=== PATIENT | male | born 2000 | race Caucasian/White ===

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

== ENCOUNTER 2022-12-25 12:46 | Emergency (ER) | payer OTHER, SELFPAY ==
[2022-12-25 13:15] VITALS: BP 117/74; PULSE 77; RESP 18; TEMP 37; O2SAT 98; BMI 16.9
--- NOTE | 2022-12-25 13:36 | EXP.UTC ---
Discharge Plan Disposition Patient Disposition: Home, Self-Care Condition: Good Referrals Follow up/Referrals: Provider,Referral, MD [Primary Care Provider] - See instructions Activity Restrictions/Add. Instructions Additional Instructions/Restrictions: Follow up with your Family Doctor if no improvement or any worsening of symptoms Return if needed Straight to ER if any life threatening symptoms Clinical Impressions Clinical Impression: Impacted ear wax Qualifiers: Laterality: bilateral Qualified Code(s): H61.23 - Impacted cerumen, bilateral Instructions Patient Instructions: DI for Cerumen Impaction Discharge ED Provider: Hanny Felix [facility] General Stated complaint: bilateral ear pain Mode of Arrival: Ambulatory Source of Information: Patient Limitations: No Limitations Time Seen by Provider: 12/25/22 13:36 Description of Symptoms (Recalled from Triage Doc. by RN): Bilateral ear pain. Pt states that they are clogged. HEENT Symptoms (Recalled from RN notes): Yes Resp Symptoms (Recalled from RN notes): No Skin Symptoms (Recalled from RN notes): No MS Symptoms (Recalled from RN notes): No Functional Status (Recalled from RN notes): n/a History of Present Illness Provider Complaint: Patient states that he hasnt been able to hear well out of both ears for well over a week not sure if he slept wrong and has fluid in them or if they area stopped up with ear wax States that he has tried to get them cleaned out but nothing he has done at home has worked and it is aggravating him Related Data Allergies Allergy/AdvReac Type Severity Reaction Status Date / Time No Known Allergies Allergy Verified 12/25/22 13:26 Worker's Comp Is this a Worker's Comp case?: No [facility] Disclaimer: The information contained in this section may have been updated after the patient was seen, as this information can be updated by other users. Social History Smoking Status: Unknown if ever smoked alcohol intake: never current occupational status: employed Travel in the last 8 weeks: None ROS Obtained: Yes All systems reviewed & no additional complaints except as documented and Yes Systems reviewed as appropriate & no additional complaints except as documented Constitutional Constitutional: Reports system reviewed and no additional complaints, except as documented and Reports as per HPI ENT Ears, Nose, Mouth, and Throat: Reports system reviewed and no additional complaints, except as documented, Reports as per HPI and Reports otalgia (feels like both ears are stopped up) Physical Exam General General appearance: alert and in no apparent distress Expanded ENT Exam TM/Canal exam: Bilateral TM: cerumen impaction Respiratory Respiratory exam: Present normal lung sounds bilaterally; Absent respiratory distress or wheezes Cardiovascular Cardiovascular exam: Present regular rate, normal rhythm and normal heart sounds Neurological Exam Neurological exam: Present alert, oriented X3 and normal gait Medical Decision Making Agusto Inquiry Pt receiving controlled substance: No Agusto was queried for this patient: No Vital Signs: 12/25/22 13:15 Temperature 98.6 F Temperature Source Oral Pulse Rate [Right Radial] 77 Respiratory Rate 18 Blood Pressure [Right Arm] 117/74 Blood Pressure Mean [Right Arm] 88 Blood Pressure Source [Right Arm] Automatic Cuff Blood Pressure Position [Right Arm] Sitting 02 Sat by Pulse Oximetry 98 Oxygen Delivery Method Room Air Procedures Ear Wax Removal Both Ears: Cerumenolytic Used: other Results: Re-examined: cerumen removed completely TM Examination: TM(s) intact, normal appearance Ear Canal Exam: atraumatic Patient Tolerated Procedure: well and no complications Complications: no problems Technique: ear canal irrigated Additional Comments: Patient states that he can now hear denies pain
[2022-12-25 13:55] VITALS: BP 117/74; PULSE 77; RESP 18; TEMP 37; O2SAT 98
== END 2022-12-25 13:58 | disposition home or self-care (01) ==
PROVIDERS: Emergency Provider Nurse Practitioner
DX: H61.23 Impacted cerumen, bilateral (principal); H92.03 Otalgia, bilateral
CPT/HCPCS: 69209; 99204; 99212; 99213; G0463

== ENCOUNTER 2024-02-03 13:52 | Emergency (ER) | payer SELFPAY ==
[2024-02-03 14:25] VITALS: BP 114/67; PULSE 66; RESP 18; TEMP 36.9; O2SAT 99; BMI 16.6
[2024-02-03 14:45] LABS: UTC Strep Screen (Rapid) Negative (Negative)
--- NOTE | 2024-02-03 15:13 | ED_ITS ---
Discharge Plan Disposition Patient Disposition: Home, Self-Care Condition: Good Prescriptions Prescriptions: New muqbqzczyorxpqd-brjtbxkod-PH [Bromfed DM] 2-30-10 mg/5 mL syrup 10 ml PO Q4-6H PRN (Reason: cold symptoms) Qty: 200 0RF Referrals Follow up/Referrals: Provider,Referral, [Primary Care Provider] - See instructions Activity Restrictions/Add. Instructions Additional Instructions/Restrictions: Take medication as prescribed. Increase fluids and rest. If symptoms persist or worsen, return to clinic/PCP. Clinical Impressions Clinical Impression: Upper respiratory infection, viral Instructions Patient Instructions: DI for Viral Upper Respiratory Infection -- Adult Print Language Print Language: Swazi Discharge ED Provider: Tatianna Garcia [facility] General Stated complaint: sore throat, runny nose Mode of Arrival: Ambulatory Source of Information: Patient Limitations: No Limitations Time Seen by Provider: 02/03/24 15:12 Description of Symptoms (Recalled from Triage Doc. by RN): PATIENT C/O SORE THROAT AND RUNNY NOSE SINCE MONDAY HEENT Symptoms (Recalled from RN notes): Yes Resp Symptoms (Recalled from RN notes): No Skin Symptoms (Recalled from RN notes): No MS Symptoms (Recalled from RN notes): No Functional Status (Recalled from RN notes): WNL History of Present Illness Provider Complaint: Pt reports that he has had a runny nose, cough, and sore throat since Monday. He denies taking anything for his symptoms. Related Data Previous Rx's ?Medication ?Instructions ?Recorded evxkvttktqumolo-ymqrhwuqthcfcxk-CM 10 ml PO Q4-6H PRN cold symptoms 02/03/24 2 mg-30 mg-10 mg/5 mL oral syrup #200 mL (Bromfed DM) Allergies Allergy/AdvReac Type Severity Reaction Status Date / Time No Known Allergies Allergy Verified 12/25/22 13:26 Worker's Comp Is this a Worker's Comp case?: No [facility] Disclaimer: The information contained in this section may have been updated after the patient was seen, as this information can be updated by other users. Surgical History (Updated 02/03/24 @ 14:37 by Nancy Tolliver RN) History of tonsillectomy Social History (Updated 12/25/22 @ 14:01 by Helga Felix, [employer]) Smoking Status: Unknown if ever smoked alcohol intake: never current occupational status: employed Travel in the last 8 weeks: None ROS Obtained: Yes All systems reviewed & no additional complaints except as documented Constitutional Constitutional: Reports system reviewed and no additional complaints, except as documented Eyes Eyes: Reports system reviewed and no additional complaints, except as documented ENT Ears, Nose, Mouth, and Throat: Reports system reviewed and no additional complaints, except as documented, Reports nasal congestion, Reports nasal discharge, Reports post nasal drip and Reports sore throat Cardiovascular Cardiovascular: Reports system reviewed and no additional complaints, except as documented Respiratory Respiratory: Reports system reviewed and no additional complaints, except as documented and Reports non-productive cough Gastrointestinal Gastrointestingal: Reports system reviewed and no additional complaints, except as documented Genitourinary Male Genitourinary: Reports system reviewed and no additional complaints, except as documented Musculoskeletal Musculoskeletal: Reports system reviewed and no additional complaints, except as documented Integumentary/Breasts Skin/Breast: Reports system reviewed and no additional complaints, except as documented Neurologic Neurologic: Reports system reviewed and no additional complaints, except as documented Endocrine Endocrine: Reports system reviewed and no additional complaints, except as documented Hematologic/Lymphatic Henatologic/Lymphatic: Reports system reviewed and no additional complaints, except as documented Allergic/Immunologic Allergic/Immunologic: Reports system reviewed and no additional complaints, except as documented Physical Exam General General appearance: alert and in no apparent distress Head Head exam: atraumatic and normocephalic Eye Eye exam: Present normal appearance ENT ENT exam: Present mucous membranes moist Expanded ENT Exam External ear exam: Present normal external inspection Nose exam: Absent sinus tenderness Nasal speculum exam: Bilateral: other (clear drainage) Mouth exam: Present normal external inspection Teeth exam: Present normal inspection Throat exam: Present tonsillar erythema Comment: post nasal drainage noted Neck Neck exam: Present normal inspection Chest Chest inspection: Present normal inspection and symmetric chest wall rise Respiratory Respiratory exam: Present normal lung sounds bilaterally Cardiovascular Cardiovascular exam: Present regular rate and normal rhythm Abdominal Exam Abdominal exam: Present soft Extremities Exam Extremities exam: Present normal inspection Back Exam Back exam: Present normal inspection Neurological Exam Neurological exam: Present alert and oriented X3 Psychiatric Psychiatric exam: Present normal affect and normal mood Skin Skin exam: Present warm, dry and intact Lymphatic Lymphatic Findings: no adenopathy Medical Decision Making Medical Records Screening: Per USPSTF and CDC recommendations, given the prevalence of disease in our region, it is our hospital?s policy to screen for HIV and viral Hepatitis for all patients aged 18 and over and those with ongoing risk factors. Agusto Inquiry Pt receiving controlled substance: No Agusto was queried for this patient: No Vital Signs: 02/03/24 14:25 Temperature 98.5 F Temperature Source Oral Pulse Rate [Left Brachial] 66 Respiratory Rate 18 Blood Pressure [Left Arm] 114/67 Blood Pressure Mean [Left Arm] 82 Blood Pressure Source [Left Arm] Automatic Cuff Blood Pressure Position [Left Arm] Sitting 02 Sat by Pulse Oximetry 99 Oxygen Delivery Method Room Air Lab Data Lab results reviewed: Yes I reviewed the patient's lab results. Lab Results 02/03/24 14:44: Strep Scn Rapid Clinic Negative Orders (Tests/Meds): ORDERS Category Date Time Status Strep Screen Confirmation Stat Micro 02/03/24 14:44 Received
[2024-02-03 15:27] VITALS: BP 114/67; PULSE 66; RESP 18; TEMP 36.9; O2SAT 99
== END 2024-02-03 15:30 | disposition home or self-care (01) ==
PROVIDERS: Emergency Provider Nurse Practitioner Family
DX: J06.9 Acute upper respiratory infection, unspecified (principal); J02.9 Acute pharyngitis, unspecified; R09.81 Nasal congestion; R05.9 Cough, unspecified
CPT/HCPCS: 87880; 99212; G0381

== ENCOUNTER 2024-02-20 02:36 | Emergency (ER) | payer BC, SELFPAY ==
[2024-02-20 02:38] VITALS: BP 125/96; PULSE 102; RESP 14; TEMP 36.6; O2SAT 98; BMI 19.7
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
[2024-02-20] MEDS: ACETAMINOPHEN 500MG TAB 1000 MG PO (03:05)
[2024-02-20 03:09] VITALS: BP 113/72; PULSE 72; RESP 16; TEMP 36.6; O2SAT 98
== END 2024-02-20 03:11 | disposition home or self-care (01) ==
PROVIDERS: Emergency Provider Emergency Medicine
DX: M79.641 Pain in right hand (principal); M25.551 Pain in right hip; X58.XXXA Exposure to other specified factors, initial encounter; Y93.89 Activity, other specified; Y92.9 Unspecified place or not applicable
CPT/HCPCS: 72170; 73130; 99283

== ENCOUNTER 2024-03-15 09:56 | Emergency (ER) | payer BC, SELFPAY ==
[2024-03-15 10:25] VITALS: BP 117/68; PULSE 77; RESP 19; TEMP 36.9; O2SAT 98; BMI 18.3
--- NOTE | 2024-03-15 10:29 | XR_ITS ---
FINAL REPORT CLINICAL HISTORY: COUGH AND CONGESTION COMPARISON: None FINDINGS: There is a small vague opacity in the left infrahilar region suspicious for pneumonia. There is no evidence of pleural effusion. The mediastinum has a normal appearance. The cardiac silhouette is unremarkable. IMPRESSION: Mild left perihilar pneumonia. Reviewed, Interpreted and Dictated by Pamela Feliciano MD Transcribed by [facility] Authenticated and [facility]
[2024-03-15 10:37] LABS: Coronavirus 19, PCR Not Detected (NotDetected); Influenza B, PCR Not Detected (NotDetected)
--- NOTE | 2024-03-15 10:37 | ED_ITS ---
Discharge Plan Disposition Patient Disposition: Home, Self-Care Condition: Good Prescriptions Prescriptions: New azithromycin [Zithromax] 250 mg tablet 250 mg PO UD DOSE PK Qty: 6 0RF Rx Instructions: Take two (2) tablets today, then one (1) tablet days #2 thru #5 methylprednisolone 4 mg Tablets,Dose Pack 4 mg PO DIRECTED 6 Days Qty: 21 0RF Rx Instructions: Take 1 pack as directed for 6 days afkhlnsnvtwuunb-jkuojmfer-CQ [Bromfed DM] 2-30-10 mg/5 mL Syrup 5 ml PO Q6H PRN (Reason: Cough) Qty: 240 0RF amoxicillin-pot clavulanate 875-125 mg Tablet 1 tab PO Q12H Qty: 20 0RF Referrals Follow up/Referrals: Provider,Referral, MD [Primary Care Provider] - See instructions Activity Restrictions/Add. Instructions Additional Instructions/Restrictions: Drink plenty of fluids. Take tylenol or ibuprofen for pain or fever. Take the medications as directed. Follow up with your regular doctor. GO TO THE ER FOR ANY WORSENING SYMPTOMS Clinical Impressions Clinical Impression: Pneumonia, Acute viral syndrome Stand Alone Forms Stand Alone Forms: Work/School Release Instructions Patient Instructions: Pneumonia--Adult, Amoxicillin and Clavulanic Acid, Azithromycin Print Language Print Language: Yakut Discharge ED Provider: Mani Pool [facility] General Stated complaint: cough, headache, body aches, chills, lung pain Mode of Arrival: Ambulatory Source of Information: Patient Limitations: No Limitations Time Seen by Provider: 03/15/24 10:37 Description of Symptoms (Recalled from Triage Doc. by RN): PATIENT C/O LUNG PAIN, COUGH, HEADACHE, SORE THROAT AND CHILLS SINCE YESTERDAY HEENT Symptoms (Recalled from RN notes): Yes Resp Symptoms (Recalled from RN notes): Yes Skin Symptoms (Recalled from RN notes): No MS Symptoms (Recalled from RN notes): No Functional Status (Recalled from RN notes): WNL History of Present Illness Provider Complaint: He states that for the past 3 days he has had fever, chills, malaise, productive cough, body aches and sore throat. Related Data Previous Rx's ?Medication ?Instructions ?Recorded amoxicillin 875 mg-potassium 1 tab PO Q12H #20 tabs 03/15/24 clavulanate 125 mg tablet azithromycin 250 mg tablet 250 mg PO UD DOSE PK #6 tabs 03/15/24 (Zithromax) xzzkflzxsrgmsbk-wdjxrzeaweadshj-HG 5 ml PO Q6H PRN Cough #240 mL 03/15/24 2 mg-30 mg-10 mg/5 mL oral syrup (Bromfed DM) methylprednisolone 4 mg tablets in 4 mg PO DIRECTED 6 days #21 tabs 03/15/24 a dose pack Allergies Allergy/AdvReac Type Severity Reaction Status Date / Time No Known Allergies Allergy Verified 12/25/22 13:26 Worker's Comp Is this a Worker's Comp case?: No [facility] Disclaimer: The information contained in this section may have been updated after the patient was seen, as this information can be updated by other users. Surgical History (Updated 02/03/24 @ 14:37 by Nancy Tolliver RN) History of tonsillectomy Social History (Updated 12/25/22 @ 14:01 by Hanny Felix APRN) Smoking Status: Current every day smoker alcohol intake: never current occupational status: employed Travel in the last 8 weeks: None Have you lived/traveled outside US in past 30 days?: No Contact w/someone who lives/traveled outside US past 30 days?: No Exposure to someone with infectious disease in past 14 days?: No Do you have a fever (greater than 100.4 F or 38 C)?: No Have you tested positive for COVID-19: No Exposed to someone with COVID-19 in past 14 days?: No Do you have a sore throat?: No Do you have a cough?: Yes Do you have any weakness?: No Do you have any diarrhea?: No Are you experiencing any unusual bleeding?: No Do you have any muscle aches/pain?: Yes Do you have any abdominal pain?: No Are you experiencing loss of taste or smell?: No ROS Obtained: Yes All systems reviewed & no additional complaints except as documented Constitutional Constitutional: Reports chills and Reports fever(s) Eyes Eyes: Denies eye discharge ENT Ears, Nose, Mouth, and Throat: Reports as per HPI Cardiovascular Cardiovascular: Denies chest pain Respiratory Respiratory: Denies chest congestion and Reports cough Gastrointestinal Gastrointestingal: Reports nausea; Denies abdominal pain, constipation, cramping, diarrhea or vomiting Musculoskeletal Musculoskeletal: Denies arthralgias Integumentary/Breasts Skin/Breast: Denies rash Neurologic Neurologic: Denies paresthesias Physical Exam General General appearance: alert and in no apparent distress Head Head exam: atraumatic, normocephalic and normal inspection Eye Eye exam: Present normal appearance, PERRL and EOMI ENT ENT exam: Present mucous membranes moist and normal external ear exam Expanded ENT Exam TM/Canal exam: Bilateral TM: erythema and bulging Nose exam: Absent sinus tenderness Mouth exam: Present normal external inspection; Absent drooling Teeth exam: Present normal inspection Throat exam: Present tonsillar erythema, tonsillomegaly and tonsillar exudate Neck Neck exam: Present normal inspection, full ROM and trachea midline; Absent tenderness, meningismus or lymphadenopathy Chest Chest inspection: Present normal inspection and symmetric chest wall rise; Absent tenderness Respiratory Respiratory exam: Present normal lung sounds bilaterally; Absent respiratory distress, wheezes, stridor or accessory muscle use Cardiovascular Cardiovascular exam: Present regular rate and normal rhythm; Absent systolic mur mur or diastolic murmur Abdominal Exam Abdominal exam: Present soft and normal bowel sounds; Absent distention, tenderness, guarding, rebound or rigidity Extremities Exam Extremities exam: Present normal inspection and normal capillary refill; Absent calf tenderness Back Exam Back exam: Present normal inspection and full ROM; Absent tenderness, CVA tenderness (R) or CVA tenderness (L) Neurological Exam Neurological exam: Present alert, oriented X3 and CN II-XII intact Psychiatric Psychiatric exam: Present normal affect and normal mood Skin Skin exam: Present warm, dry, intact and normal color Medical Decision Making Medical Records Medical records reviewed: No I reviewed the patient's medical records. Screening: Per USPSTF and CDC recommendations, given the prevalence of disease in our region, it is our hospital?s policy to screen for HIV and viral Hepatitis for all patients aged 18 and over and those with ongoing risk factors. Agusto Inquiry Pt receiving controlled substance: No Vital Signs: 03/15/24 10:25 Temperature 98.4 F Temperature Source Oral Pulse Rate [Left Brachial] 77 Respiratory Rate 19 Blood Pressure [Left Arm] 117/68 Blood Pressure Mean [Left Arm] 84 Blood Pressure Source [Left Arm] Automatic Cuff Blood Pressure Position [Left Arm] Sitting 02 Sat by Pulse Oximetry 98 Oxygen Delivery Method Room Air Lab Data Lab results reviewed: Yes I reviewed the patient's lab results. Orders (Tests/Meds): ORDERS Category Date Time Status CXR 2 view (NOT portable) [XR chest 2V] Stat Exams 03/15/24 10:29 Ordered Rapid PCR Covid and Flu A/B Stat Lab 03/15/24 10:06 Received Radiology Data #1: Image(s): Chest Image Reviewed: Yes I reviewed the patient's radiology image and Yes I have reviewed radiologist's interpretation Preliminary Findings: Abnormal and No Infiltrates Seen Accession No. : [id number] Patient Name / ID : BOBBY LAWS / [id number] Exam Date : 03/15/2024 10:43:34 ( Final ) Study Comment : Sex / Age : M / 23Y Creator : Jonathan Feliciano MD Dictator : Metal Model Maker : Analysis Manager : Jonathan Feliciano MD Approver2 : Report Date : 03/15/2024 11:09:00 My Comment : FINAL REPORT CLINICAL HISTORY: COUGH AND CONGESTION COMPARISON: None FINDINGS: There is a small vague opacity in the left infrahilar region suspicious for pneumonia. There is no evidence of pleural effusion. The mediastinum has a normal appearance. The cardiac silhouette is unremarkable. IMPRESSION: Mild left perihilar pneumonia. Reviewed, Interpreted and Dictated by Pamela Feliciano MD Transcribed by Ct Dukes Authenticated and [facility]
[2024-03-15 11:33] VITALS: BP 117/68; PULSE 77; RESP 19; TEMP 36.9; O2SAT 98
[2024-03-15 12:03] LABS: Influenza A, PCR Detected (NotDetected)
--- NOTE | 2024-03-15 16:38 | PC.NURSE ---
ATTEMPTED TO NOTIFY PATIENT OF POSITIVE FLU A TEST AND TAMIFLU SENT IN. PATIENT DID NOT ANSWER PHONE, VOICEMAIL NOT LEFT DUE TO NO VOICEMAIL
== END 2024-03-15 11:35 | disposition home or self-care (01) ==
PROVIDERS: Emergency Provider Nurse Practitioner Family
DX: J18.9 Pneumonia, unspecified organism (principal); B34.9 Viral infection, unspecified
CPT/HCPCS: 71046; 87636; 99214; G0381

== ENCOUNTER 2024-05-25 16:12 | Emergency (ER) | payer SELFPAY ==
[2024-05-25] VITALS (9 sets, daily range): BP systolic 112–148; BP diastolic 61–86; PULSE 61–94; RESP 14–18; TEMP 36.7; O2SAT 97–99; BMI 21.9
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
[2024-05-25] MEDS: RINGERS SOLUTION,LACTATED 500 ML 999 ML IV (16:38)
[2024-05-25] MEDS: ONDANSETRON 4MG/2ML VIAL 4 MG IV (16:38)
[2024-05-25] MEDS: HYDROMORPHONE 2MG/ML SYRINGE 0.5 MG IV (16:38)
[2024-05-25 16:51] LABS: Basophils % 0.2 % (0.1-2.0); Eosinophils % 0.1 % (0.1-12.0); Hemoglobin 16.2 g/dL (14.1-18.0); Lymphocytes # 1.1 K/mm3 (0.7-4.5); Lymphocytes % 11.3 % (10-50); Mean Corpuscular Hemoglobin 33.7 pg (27.0-31.2); Mean Corpuscular Volume 93.6 fl (80-94); Mean Platelet Volume 10.6 fl (7.4-10.4); Monocytes # 0.6 K/mm3 (0.1-1.0); Monocytes % 6.2 % (1.7-9.3); Neutrophils % 81.9 % (37.0-80.0); Platelet Count 215 K/mm3 (142-424); Red Blood Count 4.81 M/mm3 (4.60-6.20); Red Cell Distribution Width 12.4 % (11.5-17.5); White Blood Count 9.8 K/mm3 (4.8-10.8)
[2024-05-25 16:58] LABS: Alanine Aminotransferase 23 U/L (12-78); Albumin Level 4.5 g/dl (3.5-5.0); Albumin/Globulin Ratio 1.7 (1.1-1.8); Alkaline Phosphatase 91 U/L (38-126); Anion Gap 10.7 mEq/L (5-15); Aspartate Amino Transferase 30 U/L (17-59); Bilirubin,Total 1.4 mg/dl (0.2-1.3); Blood Urea Nitrogen 12 mg/dl (9-20); Calcium 9.4 mg/dl (8.4-10.2); Carbon Dioxide 27 mmol/L (22.0-30.0); Chloride 104 mmol/L (98-107); Creatinine Clearance Estimated 131 mL/min (50-200); Estimated Glomerular Filt Rate 122 ml/min (>60); GFR (African American) 148 ML/MIN (>60); Globulin 2.6 g/dL (1.3-3.2); Glucose 116 mg/dl (74-100); Lipase 30 U/L (23-300); Potassium 3.7 mmoL/L (3.5-5.1); Sodium 138 mmol/L (136-145); Total Protein,Serum 7.1 g/dl (6.3-8.2)
[2024-05-25] MEDS: IOPAMIDOL-370 (76%);100ML BOTTLE 75 ML IV (17:27)
[2024-05-25] MEDS: SODIUM CHLORIDE 0.9% 10ML SYR (RAD ONLY) 10 ML IV (17:27)
--- NOTE | 2024-05-25 18:38 | PC.NURSE ---
provided pt with something to drink for po challenge and urinal for urine sample. pt states he's able to go now
[2024-05-25 18:42] LABS: HIV Combo NEGATIVE (Negative)
[2024-05-25 18:50] LABS: Hepatitis C Ab Qual. W/ RFX NEGATIVE (Negative)
[2024-05-25 19:13] LABS: Microscopic, Urine URINE MICROSCOPIC (MICROSCOPIC)
[2024-05-25 19:14] LABS: Appearance,Urine CLEAR (Clear); Bilirubin,Urine Negative (Negative); Blood, Urine Negative (Negative); Color,Urine YELLOW (Yellow); Glucose,Urine (UA) Negative (Negative); Ketones,Urine 1+ (Negative); Leukocyte Esterase,Urine Negative (Negative); Nitrate,Urine Negative (Negative); PH,Urine 6.5 (5.0-8.5); Protein,Urine Negative (Negative); Urobilinogen,Urine 0.2 EU/dl (0.2)
[2024-05-25 19:42] LABS: Bacteria,Urine Trace /lpf; Squamous Epithelial Cell,Urine Occasional #/hpf (0-5)
== END 2024-05-25 19:26 | disposition home or self-care (01) ==
PROVIDERS: Emergency Provider Student in an Organized Health Care Education/Training Program
DX: S22.42XA Multiple fractures of ribs, left side, initial encounter for closed fracture (principal); R10.13 Epigastric pain; F17.210 Nicotine dependence, cigarettes, uncomplicated; V49.9XXD Car occupant (driver) (passenger) injured in unspecified traffic accident, subsequent encounter
CPT/HCPCS: 71045; 74177; 80053; 81001; 83690; 85025; 86803; 87389; 96361; 96374; 96375; 99285; J1171; J2405; J7120; Q9967

== ENCOUNTER 2024-07-25 02:22 | Emergency (ER) | payer SELFPAY ==
--- NOTE | 2024-07-25 02:35 | [facility].EDGENADL ---
Discharge Plan Disposition Patient Disposition: Home, Self-Care Prescriptions Prescriptions: No Action methocarbamol 750 mg tablet 1,500 mg PO TID Qty: 90 0RF lidocaine 5 % adhesive patch,medicated 1 patch topical DAILY Qty: 15 0RF Rx Instructions: leave on most painful area for up to 12 hrs Referrals Follow up/Referrals: Provider,Referral, [Primary Care Provider, Medical] - See instructions Activity Restrictions/Add. Instructions Additional Instructions/Restrictions: Please follow-up with your primary care provider. Please return to the emergency department if you develop any new or worsening symptoms or become concerned for your health. Please begin taking [id number] antihistamines such as loratadine, 10 mg twice a day. Okay to take Benadryl at night to help with itching and sleep. Clinical Impressions Clinical Impression: Acute idiopathic urticaria Print Language Print Language: Mongolian Discharge ED Provider: Jamey Freed General Adult HPI General Chief complaint: Recheck/Abnormal Lab/Rx Stated complaint: reaction-itching, hives arms, heartburn Time Seen by Provider: 07/25/24 02:25 History of Present Illness HPI narrative: 23-year-old male without significant past medical history presents for hives. He reports that he was at work when he started noticed some itching on his arms. It progressed over the next couple of hours to his chest back and neck. He denies any recent fever or illness. He denies any shortness of breath, nausea vomiting. He denies any new exposures such as detergents or medicines or foods. Related Data Previous Rx's ?Medication ?Instructions ?Recorded lidocaine 5 % topical patch 1 patch topical DAILY #15 ea 05/25/24 methocarbamol 750 mg tablet 1,500 mg (2 x 750 mg) PO TID #90 05/25/24 tabs Allergies Allergy/AdvReac Type Severity Reaction Status Date / Time No Known Allergies Allergy Verified 05/25/24 16:36 [facility] Disclaimer: The information contained in this section may have been updated after the patient was seen, as this information can be updated by other users. Surgical History (Updated 02/03/24 @ 14:37 by Nancy Tolliver RN) History of tonsillectomy Social History Smoking Status: Current every day smoker alcohol intake: never current occupational status: employed Travel in the last 8 weeks?: None Have you lived/traveled outside [place] in past 30 days?: No Contact w/someone who lives/traveled outside [place] past 30 days?: No Exposure to someone with infectious disease in past 14 days?: No Do you have a fever (greater than 100.4 F or 38 C)?: No Have you tested positive for COVID-19?: No Exposed to someone with COVID-19 in past 14 days?: No Do you have a sore throat?: No Do you have a cough?: No Do you have any weakness?: No Do you have any diarrhea?: No Are you experiencing any unusual bleeding?: No Do you have any muscle aches/pain?: No Do you have any abdominal pain?: No Are you experiencing loss of taste or smell?: No ROS Obtained: Yes All systems reviewed & no additional complaints except as documented Physical Exam General General appearance: alert and in no apparent distress Head Head exam: atraumatic and normocephalic Eye Eye exam: Present normal appearance, PERRL and EOMI ENT ENT exam: Present normal oropharynx and normal external ear exam Neck Neck exam: Present normal inspection and full ROM Chest Chest inspection: Present normal inspection and symmetric chest wall rise; Absent tenderness Respiratory Respiratory exam: Present normal lung sounds bilaterally; Absent respiratory distress Cardiovascular Cardiovascular exam: Present regular rate and normal rhythm Abdominal Exam Abdominal exam: Present soft; Absent distention, tenderness or guarding Extremities Exam Extremities exam: Present normal inspection; Absent edema or joint swelling Back Exam Back exam: Present normal inspection; Absent tenderness Neurological Exam Neurological exam: Present alert and oriented X3; Absent motor sensory deficit Psychiatric Psychiatric exam: Present normal affect and normal mood Skin Skin exam: Present warm, dry and rash (Diffuse blanching erythematous macules consistent with urticaria) Lymphatic Lymphatic Findings: no adenopathy Medical Decision Making Medical Records Medical records reviewed: Yes I reviewed the patient's medical records. Screening: Per USPSTF and CDC recommendations, given the prevalence of disease in our region, it is our hospital?s policy to screen for HIV and viral Hepatitis for all patients aged 18 and over and those with ongoing risk factors. Agusto Inquiry Pt receiving controlled substance: No Agusto was queried for this patient: No Vital Signs: 07/25/24 02:37 07/25/24 02:44 Temperature 98.2 F 98.2 F Temperature Source Tympanic Oral Pulse Rate 77 Pulse Rate [Left] 77 Respiratory Rate 18 18 Blood Pressure 138/82 Blood Pressure [Right Arm] 138/82 Blood Pressure Mean [Right Arm] 100 02 Sat by Pulse Oximetry 99 Oxygen Delivery Method Room Air Room Air Lab Data Lab results reviewed: Yes I reviewed the patient's lab results. Orders (Tests/Meds): ED MEDICATIONS Discontinued Medications Generic Name Dose Route Start Last Admin Trade Name Heath PRN Reason Stop Dose Admin Loratadine 10 mg 07/25/24 02:33 07/25/24 02:40 Loratadine 10mg Tablet PO 07/25/24 02:34 10 mg ONCE ONE Administration Medical Decision Narrative: 23-year-old male without significant past medical history presents for hives. History was obtained via interactive discussion with patient. On arrival, patient is [afebrile, hemodynamically stable, satting appropriately, alert, oriented x4, GCS 15], moving all extremities spontaneously. Full physical exam performed and significant for generalized urticaria, clear lungs bilaterally Differential includes but is not limited to idiopathic urticaria, vasculitis, anaphylaxis. Patient does not meet criteria for anaphylaxis and lesions do not appear vasculitic. No obvious exposure to suggest allergic reaction. Patient's presentation is most consistent with acute idiopathic urticaria. He was encouraged to begin taking antihistamines daily and follow-up with PCP/squeegee finisher if symptoms persist. Patient given a dose of loratadine prior to discharge. He took Benadryl prior to arrival. Procedures Risk/Benefits of Procedure(s) Were Explained: Yes Critical Care Critical Care Time Critical Care Time: No
[2024-07-25 02:37] VITALS: BP 138/82; PULSE 77; RESP 18; TEMP 36.8; O2SAT 99; BMI 20.3
[2024-07-25] MEDS: LORATADINE 10MG TABLET 10 MG PO (02:40)
[2024-07-25 02:44] VITALS: BP 138/82; PULSE 77; RESP 18; TEMP 36.8; O2SAT 99
== END 2024-07-25 02:51 | disposition home or self-care (01) ==
PROVIDERS: Emergency Provider Emergency Medicine
DX: L50.1 Idiopathic urticaria (principal); F17.210 Nicotine dependence, cigarettes, uncomplicated
CPT/HCPCS: 99283

== ENCOUNTER 2024-08-04 05:48 | Emergency (ER) | payer SELFPAY ==
[2024-08-04] VITALS (12 sets, daily range): BP systolic 90–159; BP diastolic 47–98; PULSE 62–92; RESP 14–22; TEMP 36.6; O2SAT 96–99; BMI 19.8
[2024-08-04] MEDS: EPINEPHrine 1 MG/ML AMPUL 0.3 MG IM ×2 (06:03→06:31)
--- NOTE | 2024-08-04 06:07 | ED_ITS ---
Discharge Plan Disposition Patient Disposition: Home, Self-Care Condition: Good Prescriptions Prescriptions: New epinephrine [EpiPen 2-Cristian] 0.3 mg/0.3 mL auto-injector 0.3 mg IM Q15M PRN (Reason: anaphylaxis) Qty: 2 0RF Rx Instructions: for 2 doses prednisone 20 mg tablet 40 mg PO DAILY 5 Days Qty: 10 0RF ondansetron 4 mg tablet,disintegrating 4 mg PO Q8H PRN (Reason: nausea and vomiting) 4 Days Qty: 12 0RF No Action methocarbamol 750 mg tablet 1,500 mg PO TID Qty: 90 0RF lidocaine 5 % adhesive patch,medicated 1 patch topical DAILY Qty: 15 0RF Rx Instructions: leave on most painful area for up to 12 hrs Referrals Follow up/Referrals: Provider,Referral, MD [Primary Care Provider, Medical] - See instructions Activity Restrictions/Add. Instructions Additional Instructions/Restrictions: You were evaluated in the emergency department today. Please pecan picker your prescriptions and to keep EpiPen on you at all times in case of severe allergic reaction. supervisor telephone answering service your prescription for steroid and take for 5 days as prescribed. It is very important that you follow-up closely outpatient with an cytology teacher given these reactions, as we are not able to identify from the emergency department the trigger of your allergic reactions. Take 50 mg of Benadryl every 8 hours as needed for allergic type reactions as well. Return to the emergency department right away for new or worsening symptoms. Clinical Impressions Clinical Impression: Anaphylaxis, Hypokalemia Stand Alone Forms Stand Alone Forms: Work/School Release Instructions Patient Instructions: DI for Anaphylaxis, DI for Nausea -- Adult Print Language Print Language: Romanian Discharge ED Provider: Rajiv Vallejo General Adult HPI <Rajiv Vallejo MD - Last Filed: 08/04/24 06:42> General Chief complaint: Nausea/Vomiting/Diarrhea Stated complaint: throwing up dizzy rash stomache pain Time Seen by Provider: 08/04/24 05:52 History of Present Illness HPI narrative: 23-year-old male presents to the ER with diffuse body redness/rash that reportedly started 3 to 4 hours ago, 1 hour ago patient started having vomiting. Reportedly no new exposures but he had a presentation to the ER just over a week ago with spontaneous rash and was diagnosed with idiopathic urticaria. He reports no known allergies. Review of ER physician note from his last encounter demonstrates he was recommended to take daily antihistamine and follow-up with an rehabilitation counselor. Patient reports he has not been taking daily antihistamine, he did take Benadryl a couple times for rash that started to develop, and he has not followed up with an rehabilitation counselor citing a lack of health insurance. Reportedly patient has no new foods or medications, no known environmental exposures, no new soaps, detergents, etc. He does report a sensation of it being difficult to breathe but no throat swelling. Patient is bright red all over with rash which he states started all at once. No recent sun exposure. He vapes but denies marijuana or other illicit drug use as well as denies alcohol use. Patient does report drinking red Hermes-Aid prior to arrival. Related Data Previous Rx's ?Medication ?Instructions ?Recorded lidocaine 5 % topical patch 1 patch topical DAILY #15 ea 05/25/24 methocarbamol 750 mg tablet 1,500 mg (2 x 750 mg) PO T ID #90 05/25/24 tabs epinephrine 0.3 mg/0.3 mL 0.3 mg (0.3 mL) IM Q15M PRN 08/04/24 injection, auto-injector (EpiPen anaphylaxis #2 ea 2-Cristian) ondansetron 4 mg disintegrating 4 mg PO Q8H PRN nausea and 08/04/24 tablet vomiting 4 days #12 tabs prednisone 20 mg tablet 40 mg (2 x 20 mg) PO DAILY 5 days 08/04/24 #10 tabs Allergies Allergy/AdvReac Type Severity Reaction Status Date / Time No Known Allergies Allergy Verified 05/25/24 16:36 [facility] <Rajiv Vallejo MD - Last Filed: 08/04/24 06:42> [facility] Disclaimer: The information contained in this section may have been updated after the patient was seen, as this information can be updated by other users. Surgical History (Updated 02/03/24 @ 14:37 by Nancy Tolliver RN) History of tonsillectomy Social History Smoking Status: Current every day smoker alcohol intake: never current occupational status: employed Travel in the last 8 weeks?: None Have you lived/traveled outside [place] in past 30 days?: No Contact w/someone who lives/traveled outside US past 30 days?: No Exposure to someone with infectious disease in past 14 days?: No Do you have a fever (greater than 100.4 F or 38 C)?: No Have you tested positive for COVID-19?: No Exposed to someone with COVID-19 in past 14 days?: No Do you have a sore throat?: No Do you have a cough?: No Do you have any weakness?: No Do you have any diarrhea?: No Are you experiencing any unusual bleeding?: No Do you have any muscle aches/pain?: No Do you have any abdominal pain?: Yes Are you experiencing loss of taste or smell?: No <Rajiv Vallejo MD - Last Filed: 08/04/24 06:42> ROS Obtained: Yes Systems reviewed as appropriate & no additional complaints except as documented Per HPI Physical Exam <Rajiv Vallejo MD - Last Filed: 08/04/24 06:42> General General appearance: alert Comment: Diffusely erythematous, having active emesis of red Hermes-Aid but it is nonbloody, nonbilious Head Head exam: atraumatic and normocephalic Eye Eye exam: Present PERRL and EOMI ENT ENT exam: Present mucous membranes moist and other (No angioedema) Neck Neck exam: Present normal inspection and full ROM Chest Chest inspection: Present symmetric chest wall rise Respiratory Respiratory exam: Present normal lung sounds bilaterally; Absent respiratory distress or stridor Cardiovascular Cardiovascular exam: Present normal rhythm and tachycardia Abdominal Exam Abdominal exam: Present soft and tenderness (very mild epigastric); Absent distention, guarding or rebound Extremities Exam Extremities exam: Present full ROM Neurological Exam Neurological exam: Present alert and oriented X3; Absent motor sensory deficit Psychiatric Psychiatric exam: Present normal affect and normal mood Skin Skin exam: Present warm, dry and erythema (Neurolyse erythematous rash over the entire body with diffuse urticaria) Medical Decision Making <Rajiv Vallejo MD - Last Filed: 08/04/24 06:42> Medical Records Medical records reviewed: Yes I reviewed the patient's medical records. Screening: Per USPSTF and CDC recommendations, given the prevalence of disease in our region, it is our hospital?s policy to screen for HIV and viral Hepatitis for all patients aged 18 and over and those with ongoing risk factors. Agusto Inquiry Pt receiving controlled substance: No Vital Signs: 08/04/24 06:00 08/04/24 07:00 08/04/24 07:30 Temperature 97.9 F Temperature Source Oral Pulse Rate 79 Pulse Rate [Left] 85 Respiratory Rate 16 21 22 Blood Pressure 95/53 L 93/47 L Blood Pressure [Right Arm] 159/98 H Blood Pressure Mean [Right Arm] 118 02 Sat by Pulse Oximetry 96 99 99 Oxygen Delivery Method Room Air 08/04/24 08:00 08/04/24 08:30 08/04/24 08:37 Temperature Temperature Source Pulse Rate 64 Pulse Rate [Left] Respiratory Rate 21 19 Blood Pressure 94/53 L 91/50 L Blood Pressure [Right Arm] Blood Pressure Mean [Right Arm] 02 Sat by Pulse Oximetry 98 Oxygen Delivery Method Room Air 08/04/24 09:00 08/04/24 09:30 08/04/24 10:00 Temperature Temperature Source Pulse Rate 62 70 71 Pulse Rate [Left] Respiratory Rate 19 19 16 Blood Pressure 90/54 L 90/51 L 100/57 L Blood Pressure [Right Arm] Blood Pressure Mean [Right Arm] 02 Sat by Pulse Oximetry 97 97 98 Oxygen Delivery Method Room Air Room Air 08/04/24 10:30 08/04/24 11:00 08/04/24 11:07 Temperature 98 F Temperature Source Pulse Rate 67 92 H 66 Pulse Rate [Left] Respiratory Rate 20 17 14 Blood Pressure 98/55 L 107/63 L 107/63 L Blood Pressure [Right Arm] Blood Pressure Mean [Right Arm] 02 Sat by Pulse Oximetry 97 97 Oxygen Delivery Method Lab Data Lab Results 08/04/24 06:00: WBC 19.9 H, RBC 5.56, Hgb 18.6 H, Hct 51.5, MCV 92.6, MCH 33.6 H , MCHC 36.3 H, RDW 11.9, Plt Count 316, MPV 10.6 H, Neut % (Auto) 80.4 H, Lymph % (Auto) 14.9, [place] % (Auto) 3.4, Eos % (Auto) 0.3, Baso % (Auto) 0.3, Neut # (Auto) 16.1 H, Lymph # (Auto) 3.0, [place] # (Auto) 0.7, Eos # (Auto) 0.1, Baso # (Auto) 0.1, Sodium 135 L, Potassium 3.1 L, Chloride 100, Carbon Dioxide 28, Anion Gap 10.1, BUN 14, Creatinine 1.30 H, Estimated Creat Clear 75, Estimated GFR 70, Est GFR ( Amer) 84, Glucose 178 H, Calcium 8.7, Total Bilirubin 1.3, AST 37, ALT 24, Alkaline Phosphatase 126, Total Protein 6.3, Albumin 4.2, Globulin 2.1, Albumin/Globulin Ratio 2.0 H, Lipase 71 08/04/24 06:00 08/04/24 06:00 Orders (Tests/Meds): ED MEDICATIONS Discontinued Medications Generic Name Dose Route Start Last Admin Trade Name Freq PRN Reason Stop Dose Admin Diphenhydramine HCl 50 mg 08/04/24 06:01 08/04/24 06:08 Diphenhydramine 50mg/Ml Vial IV 08/04/24 06:02 50 mg ONCE ONE Administration Droperidol 2.5 mg 08/04/24 06:21 08/04/24 06:31 Droperidol 5mg/2ml Vial IV 08/04/24 06:22 2.5 mg ONCE ONE Administration Epinephrine HCl 0.3 mg 08/04/24 06:01 08/04/24 06:03 Epinephrine 1 Mg/Ml Ampul IM 08/04/24 06:02 0.3 mg ONCE ONE Administration Epinephrine HCl 0.3 mg 08/04/24 06:23 08/04/24 06:31 Epinephrine 1 Mg/Ml Ampul IM 08/04/24 06:24 0.3 mg ONCE ONE Administration Famotidine 20 mg 08/04/24 06:01 08/04/24 06:08 Famotidine 20mg/2ml Vial IV 08/04/24 06:02 20 mg ONCE ONE Administration Lactated Ringer's 1,000 mls @ 999 mls/hr 08/04/24 06:15 08/04/24 06:30 Lactated Ringer's 1000 Ml Bag IV 08/04/24 07:15 999 mls/hr .Q1H1M ONE Administration Lactated Ringer's 1,000 mls @ 999 mls/hr 08/04/24 07:44 08/04/24 07:55 Lactated Ringer's 1000 Ml Bag IV 08/04/24 08:44 999 mls/hr .Q1H1M ONE Administration Potassium Chloride/Water 100 mls @ 100 mls/hr 08/04/24 07:44 08/04/24 08:53 Potassium Chloride 10meq/100ml Ivpb IV 08/04/24 09:43 100 mls/hr Q1H [id number] Administration Methylprednisolone Sodium Succinate 125 mg 08/04/24 06:01 08/04/24 06:08 Methylprednisolone Sod Succ 125mg Vial IV 08/04/24 06:02 125 mg ONCE ONE Administration Ondansetron HCl 4 mg 08/04/24 06:02 08/04/24 06:08 Ondansetron 4mg/2ml Vial IV 08/04/24 06:03 4 mg ONCE ONE Administration Sodium Chloride 8 ml 08/04/24 06:01 08/04/24 06:13 Sodium Chloride 0.9% 10ml Vial IV 09/03/24 06:00 8 ml NEEDED PRN Administration dilute pepcid ORDERS Category Date Time Status CBC w/Auto Diff [Complete Blood Count Auto Diff] Stat Lab 08/04/24 06:00 Completed CMP [Comprehensive Metabolic Panel] Stat Lab 08/04/24 06:00 Completed Lipase Stat Lab 08/04/24 06:00 Completed ECG Request Stat Y 08/04/24 06:21 Ordered Medical Decision Narrative: In summary, this 23-year-old male presents to the emergency department today with diffuse rash, vomiting. On initial evaluation patient is mildly tachycardic but otherwise hemodynamically stable, afebrile, diffusely erythematous rash with diffuse urticaria, no angioedema, no respiratory distress, saturating well on room air with no adventitious sounds in the lungs, no wheezing, patient is having active emesis, the emesis is red thin clear liquid but patient reports he drank red Hermes-Aid prior to arrival. With itchy erythematous rash all over the body and emesis, I believe this is anaphylaxis with multisystem organ involvement due to unknown stimulus. Patient immediately received IM epinephrine. Additional medications were also ordered to manage allergic reaction. I considered pancreatitis or metabolic derangement since patient continued having emesis after initial interventions and added serum labs to workup. EKG was ordered to be able to administer droperidol since patient continued having emesis despite receiving a second dose of IM epinephrine. After these interventions, the patient is resting comfortably, no additional emesis, hemodynamically stable. EKG personally interpreted demonstrate sinus rhythm, rate 85, normal axis, normal ME and QTc, no STEMI He was placed into ED observation at 0640 for frequent reassessment and continued hemodynamic monitoring. If patient were to have recurrence of symptoms, he would likely require admission. Hopefully he will remain asymptomatic and well-controlled and can potentially be discharged in a few hours after labs are completed and appropriate duration of observation. Patient handed off to Dr. Palma in stable condition with labs pending in ED observation. <Ml Palma, DO - Last Filed: 08/04/24 11:26> Vital Signs: 08/04/24 06:00 08/04/24 07:00 08/04/24 07:30 Temperature 97.9 F Temperature Source Oral Pulse Rate 79 Pulse Rate [Left] 85 Respiratory Rate 16 21 22 Blood Pressure 95/53 L 93/47 L Blood Pressure [Right Arm] 159/98 H Blood Pressure Mean [Right Arm] 118 02 Sat by Pulse Oximetry 96 99 99 Oxygen Delivery Method Room Air 08/04/24 08:00 08/04/24 08:30 08/04/24 08:37 Temperature Temperature Source Pulse Rate 64 Pulse Rate [Left] Respiratory Rate 21 19 Blood Pressure 94/53 L 91/50 L Blood Pressure [Right Arm] Blood Pressure Mean [Right Arm] 02 Sat by Pulse Oximetry 98 Oxygen Delivery Method Room Air 08/04/24 09:00 08/04/24 09:30 08/04/24 10:00 Temperature Temperature Source Pulse Rate 62 70 71 Pulse Rate [Left] Respiratory Rate 19 19 16 Blood Pressure 90/54 L 90/51 L 100/57 L Blood Pressure [Right Arm] Blood Pressure Mean [Right Arm] 02 Sat by Pulse Oximetry 97 97 98 Oxygen Delivery Method Room Air Room Air 08/04/24 10:30 08/04/24 11:00 08/04/24 11:07 Temperature 98 F Temperature Source Pulse Rate 67 92 H 66 Pulse Rate [Left] Respiratory Rate 20 17 14 Blood Pressure 98/55 L 107/63 L 107/63 L Blood Pressure [Right Arm] Blood Pressure Mean [Right Arm] 02 Sat by Pulse Oximetry 97 97 Oxygen Delivery Method Lab Data Lab Results 08/04/24 06:00: WBC 19.9 H, RBC 5.56, Hgb 18.6 H, Hct 51.5, MCV 92.6, MCH 33.6 H , MCHC 36.3 H, RDW 11.9, Plt Count 316, MPV 10.6 H, Neut % (Auto) 80.4 H, Lymph % (Auto) 14.9, [place] % (Auto) 3.4, Eos % (Auto) 0.3, Baso % (Auto) 0.3, Neut # (Auto) 16.1 H, Lymph # (Auto) 3.0, [place] # (Auto) 0.7, Eos # (Auto) 0.1, Baso # (Auto) 0.1, Sodium 135 L, Potassium 3.1 L, Chloride 100, Carbon Dioxide 28, Anion Gap 10.1, BUN 14, Creatinine 1.30 H, Estimated Creat Clear 75, Estimated GFR 70, Est GFR ( Amer) 84, Glucose 178 H, Calcium 8.7, Total Bilirubin 1.3, AST 37, ALT 24, Alkaline Phosphatase 126, Total Protein 6.3, Albumin 4.2, Globulin 2.1, Albumin/Globulin Ratio 2.0 H, Lipase 71 Orders (Tests/Meds): ED MEDICATIONS Discontinued Medications Generic Name Dose Route Start Last Admin Trade Name Freq PRN Reason Stop Dose Admin Diphenhydramine HCl 50 mg 08/04/24 06:01 08/04/24 06:08 Diphenhydramine 50mg/Ml Vial IV 08/04/24 06:02 50 mg ONCE ONE Administration Droperidol 2.5 mg 08/04/24 06:21 08/04/24 06:31 Droperidol 5mg/2ml Vial IV 08/04/24 06:22 2.5 mg ONCE ONE Administration Epinephrine HCl 0.3 mg 08/04/24 06:01 08/04/24 06:03 Epinephrine 1 Mg/Ml Ampul IM 08/04/24 06:02 0.3 mg ONCE ONE Administration Epinephrine HCl 0.3 mg 08/04/24 06:23 08/04/24 06:31 Epinephrine 1 Mg/Ml Ampul IM 08/04/24 06:24 0.3 mg ONCE ONE Administration Famotidine 20 mg 08/04/24 06:01 08/04/24 06:08 Famotidine 20mg/2ml Vial IV 08/04/24 06:02 20 mg ONCE ONE Administration Lactated Ringer's 1,000 mls @ 999 mls/hr 08/04/24 06:15 08/04/24 06:30 Lactated Ringer's 1000 Ml Bag IV 08/04/24 07:15 999 mls/hr .Q1H1M ONE Administration Lactated Ringer's 1,000 mls @ 999 mls/hr 08/04/24 07:44 08/04/24 07:55 Lactated Ringer's 1000 Ml Bag IV 08/04/24 08:44 999 mls/hr .Q1H1M ONE Administration Potassium Chloride/Water 100 mls @ 100 mls/hr 08/04/24 07:44 08/04/24 08:53 Potassium Chloride 10meq/100ml Ivpb IV 08/04/24 09:43 100 mls/hr Q1H [id number] Administration Methylprednisolone Sodium Succinate 125 mg 08/04/24 06:01 08/04/24 06:08 Methylprednisolone Sod Succ 125mg Vial IV 08/04/24 06:02 125 mg ONCE ONE Administration Ondansetron HCl 4 mg 08/04/24 06:02 08/04/24 06:08 Ondansetron 4mg/2ml Vial IV 08/04/24 06:03 4 mg ONCE ONE Administration Sodium Chloride 8 ml 08/04/24 06:01 08/04/24 06:13 Sodium Chloride 0.9% 10ml Vial IV 09/03/24 06:00 8 ml NEEDED PRN Administration dilute pepcid ORDERS Category Date Time Status CBC w/Auto Diff [Complete Blood Count Auto Diff] Stat Lab 08/04/24 06:00 Completed CMP [Comprehensive Metabolic Panel] Stat Lab 08/04/24 06:00 Completed Lipase Stat Lab 08/04/24 06:00 Completed ECG Request Stat Y 08/04/24 06:21 Ordered Medical Decision Narrative: In summary, this 23-year-old male presents to the emergency department today with diffuse rash, vomiting. On initial evaluation patient is mildly tachycardic but otherwise hemodynamically stable, afebrile, diffusely erythematous rash with diffuse urticaria, no angioedema, no respiratory distress, saturating well on room air with no adventitious sounds in the lungs, no wheezing, patient is having active emesis, the emesis is red thin clear liquid but patient reports he drank red Hermes-Aid prior to arrival. With itchy erythematous rash all over the body and emesis, I believe this is anaphylaxis with multisystem organ involvement due to unknown stimulus. Patient immediately received IM epinephrine. Additional medications were also ordered to manage allergic reaction. I considered pancreatitis or metabolic derangement since patient continued having emesis after initial interventions and added serum labs to workup. EKG was ordered to be able to administer droperidol since patient continued having emesis despite receiving a second dose of IM epinephrine. After these interventions, the patient is resting comfortably, no additional emesis, hemodynamically stable. EKG personally interpreted demonstrate sinus rhythm, rate 85, normal axis, normal ME and QTc, no STEMI He was placed into ED observation at 0640 for frequent reassessment and continued hemodynamic monitoring. If patient were to have recurrence of symptoms, he would likely require admission. Hopefully he will remain asymptomatic and well-controlled and can potentially be discharged in a few hours after labs are completed and appropriate duration of observation. Patient handed off to Dr. Palma in stable condition with labs pending in ED observation. DO Louie: Lab work demonstrated leukocytosis which is nonspecific in the setting of intractable vomiting. He has no abdominal pain on assessment. He does have hypokalemia and mild hyponatremia. He also has a very mild YAJAIRA. For this, he was given a bolus of IV fluids as well as IV potassium repletion. He was monitored on cardiac telemetry while receiving potassium repletion with no notable dysrhythmia. He was observed in the emergency department for a period of several hours and had no recurrence of any rash or vomiting. He is able to tolerate oral intake and is feeling much better overall. Given this, it is felt that he is appropriate for discharge home with instructions very close follow-up with the PCP and rehabilitation counselor. He is also given prescriptions for epinephrine, Zofran, and a short prednisone course to help prevent rebound/recurrence. He was given instructions to keep EpiPen with him at all times and given very strict return precautions should his symptoms worsen. He was discharged at 11 AM after 4 hours and 20 minutes in ED observation status On 08/04/24, the high probability of a clinically significant, sudden or life threatening deterioration of the following system(s) required my full and direct attention, intervention and personal management. The time I documented below is in addition to time spent performing reported procedures but includes the following listed in this critical care notation. I personally performed 35 minutes of critical care. Critical Care <Rajiv Vallejo MD - Last Filed: 08/04/24 06:42> Critical Care Time Critical Care Time: Yes Attestation: On 08/04/24, the high probability of a clinically significant, sudden or life threatening deterioration of the following system(s) required my full and direct attention, intervention and personal management. The time I documented below is in addition to time spent performing reported procedures but includes the following listed in this critical care notation. Total Time Total Critical Care Time: 35
[2024-08-04] MEDS: FAMOTIDINE 20MG/2ML VIAL 20 MG IV (06:08)
[2024-08-04] MEDS: ONDANSETRON 4MG/2ML VIAL 4 MG IV (06:08)
[2024-08-04] MEDS: METHYLPREDNISOLONE SOD SUCC 125MG VIAL 125 MG IV (06:08)
[2024-08-04] MEDS: diphenhydrAMINE 50MG/ML VIAL 50 MG IV (06:08)
--- NOTE | 2024-08-04 06:12 | PC.NURSE ---
pt actively vomiting in floor despite having emesis bag in his hand. Pt reporting that he'd rather puke in the trash can, Pt aware of biohazard when bag falls down in can and body fluids will be dispersed throughout trash can. Pt medicated with ordered medications, asking about change of pants, pt aware that we will try and locate pants for him to wear. Pt Gcs 15, NAD noted, RR even and non labored, skin diffusely red and splotchy.
[2024-08-04] MEDS: SODIUM CHLORIDE 0.9% 10ML VIAL 8 ML IV (06:13)
[2024-08-04 06:27] LABS: Albumin Level 4.2 g/dl (3.5-5.0); Basophils # 0.1 K/mm3 (0-0.2); Basophils % 0.3 % (0.1-2.0); Chloride 100 mmol/L (98-107); Eosinophils # 0.1 Kmm3 (0.0-0.4); Eosinophils % 0.3 % (0.1-12.0); Hematocrit 51.5 % (42.0-52.0); Immature Granulocytes # 0.13 10^3uL; Immature Granulocytes % 0.7 %; Lymphocytes % 14.9 % (10-50); Mean Corpuscular HGB Conc 36.3 g/dL (31.8-35.4); Mean Corpuscular Hemoglobin 33.6 pg (27.0-31.2); Mean Corpuscular Volume 92.6 fl (80-94); Mean Platelet Volume 10.6 fl (7.4-10.4); Monocytes # 0.7 K/mm3 (0.1-1.0); Monocytes % 3.4 % (1.7-9.3); Neutrophils # 16.1 K/mm3 (1.8-7.8); Neutrophils % 80.4 % (37.0-80.0); Nucleated Red Blood Cells # 0 10^3/uL; Nucleated Red Blood Cells % 0 %; Platelet Count 316 K/mm3 (142-424); Potassium 3.1 mmoL/L (3.5-5.1); Red Blood Count 5.56 M/mm3 (4.60-6.20); Red Cell Distribution Width 11.9 % (11.5-17.5); Sodium 135 mmol/L (136-145); White Blood Count 19.9 K/mm3 (4.8-10.8)
--- NOTE | 2024-08-04 06:27 | ECG_ITS ---
APPROVED REPORT Exam: Resting ECG HR:85 bpm ECG Measurements Heart Rate 85 AXES MS 148 P 77 QRSd 80 QRS 91 QT 364 T 54 QTc 406 Conclusion SINUS RHYTHM POSSIBLE RIGHT ATRIAL ENLARGEMENT [0.25mV P-WAVE] BORDERLINE RIGHT AXIS DEVIATION [QRS AXIS > 90] NONSPECIFIC T-WAVE ABNORMALITY BORDERLINE ECG UNCONFIRMED REPORT Electronically signed by : DALIA DAVIES, 08/05/2024 06:40:21
[2024-08-04 06:30] LABS: Alanine Aminotransferase 24 U/L (12-78); Alkaline Phosphatase 126 U/L (38-126); Anion Gap 10.1 mEq/L (5-15); Aspartate Amino Transferase 37 U/L (17-59); Bilirubin,Total 1.3 mg/dl (0.2-1.3); Blood Urea Nitrogen 14 mg/dl (9-20); Calcium 8.7 mg/dl (8.4-10.2); Carbon Dioxide 28 mmol/L (22.0-30.0); Creatinine Clearance Estimated 75 mL/min (50-200); Estimated Glomerular Filt Rate 70 ml/min (>60); GFR (African American) 84 ML/MIN (>60); Globulin 2.1 g/dL (1.3-3.2); Glucose 178 mg/dl (74-100); Lipase 71 U/L (23-300); Total Protein,Serum 6.3 g/dl (6.3-8.2)
[2024-08-04] MEDS: LACTATED RINGERS 1000ML 1,000 ML 999 ML IV ×2 (06:30→07:55)
[2024-08-04] MEDS: droPERidol 5MG/2ML VIAL 2.5 MG IV (06:31)
[2024-08-04 07:36] LABS: Hemoglobin 18.6 g/dL (14.1-18.0)
[2024-08-04] MEDS: KCl 10mEq/100ml 100 ML 100 MEQ IV ×2 (07:55→08:53)
--- NOTE | 2024-08-04 08:35 | PC.NURSE ---
Rounded on patient, no needs voiced at this time. patient is resting.
== END 2024-08-04 11:13 | disposition home or self-care (01) ==
PROVIDERS: Emergency Provider Emergency Medicine
DX: T78.2XXA Anaphylactic shock, unspecified, initial encounter (principal); L50.0 Allergic urticaria; E87.6 Hypokalemia; R11.2 Nausea with vomiting, unspecified; F17.210 Nicotine dependence, cigarettes, uncomplicated
CPT/HCPCS: 80053; 83690; 85025; 93005; 96361; 96365; 96366; 96372; 96375; 99291; J0171; J1200; J1790; J2405; J2919; J3480; J7120

== ENCOUNTER 2024-09-27 02:43 | Emergency (ER) | payer SELFPAY ==
[2024-09-27 03:01] VITALS: BP 124/72; PULSE 69; O2SAT 98
[2024-09-27 03:07] VITALS: BP 111/66; PULSE 70; RESP 16; TEMP 37.1; O2SAT 97; BMI 19.0
[2024-09-27] MEDS: METHYLPREDNISOLONE SOD SUCC 125MG VIAL 125 MG IV (03:19)
[2024-09-27 03:22] LABS: Hematocrit 45.6 % (42.0-52.0); Hemoglobin 16.9 g/dL (14.1-18.0); Immature Granulocytes % 0.3 %; Mean Corpuscular HGB Conc 37.1 g/dL (31.8-35.4); Mean Corpuscular Hemoglobin 34.1 pg (27.0-31.2); Mean Corpuscular Volume 92.1 fl (80-94); Nucleated Red Blood Cells % 0 %; Platelet Count 270 K/mm3 (142-424); Red Blood Count 4.95 M/mm3 (4.60-6.20); Red Cell Distribution Width-SD 39.2 fL; White Blood Count 7.2 K/mm3 (4.8-10.8)
[2024-09-27] MEDS: LORATADINE 10MG TABLET 20 MG PO (03:24)
[2024-09-27 03:27] LABS: Alanine Aminotransferase 16 U/L (12-78); Albumin Level 4.4 g/dl (3.5-5.0); Albumin/Globulin Ratio 2.1 (1.1-1.8); Alkaline Phosphatase 133 U/L (38-126); Anion Gap 10.0 mEq/L (5-15); Aspartate Amino Transferase 25 U/L (17-59); Bilirubin,Total 1.2 mg/dl (0.2-1.3); Blood Urea Nitrogen 18 mg/dl (9-20); Calcium 9.3 mg/dl (8.4-10.2); Carbon Dioxide 25 mmol/L (22.0-30.0); Chloride 105 mmol/L (98-107); Creatinine Clearance Estimated 133 mL/min (50-200); Creatinine,Serum 0.70 mg/dl (0.66-1.25); Estimated Glomerular Filt Rate 141 ml/min (>60); GFR (African American) 171 ML/MIN (>60); Globulin 2.1 g/dL (1.3-3.2); Glucose 126 mg/dl (74-100); Potassium 4.0 mmoL/L (3.5-5.1); Sodium 136 mmol/L (136-145); Total Protein,Serum 6.5 g/dl (6.3-8.2)
[2024-09-27 03:45] VITALS: BP 114/54; PULSE 80; RESP 16; O2SAT 98
[2024-09-27 04:00] VITALS: BP 121/63
[2024-09-27 04:30] VITALS: BP 114/70; PULSE 82; RESP 16; O2SAT 96
[2024-09-27 04:43] VITALS: BP 114/70; PULSE 82; RESP 16; TEMP 36.7; O2SAT 96
--- NOTE | 2024-09-27 05:13 | [facility].EDGENADL ---
Discharge Plan Disposition Patient Disposition: Home, Self-Care Condition: Good Prescriptions Prescriptions: New epinephrine [EpiPen] 0.3 mg/0.3 mL auto-injector 0.3 mg IM Q15M PRN (Reason: anaphylaxis) Qty: 2 0RF Rx Instructions: for 2 doses prednisone 50 mg tablet 50 mg PO DAILY 3 Days Qty: 3 0RF No Action epinephrine [EpiPen 2-Cristian] 0.3 mg/0.3 mL auto-injector 0.3 mg IM Q15M PRN (Reason: anaphylaxis) Qty: 2 0RF Rx Instructions: for 2 doses Referrals Follow up/Referrals: Provider,Referral, MD [Primary Care Provider, Medical] - See instructions Activity Restrictions/Add. Instructions Additional Instructions/Restrictions: You were evaluated in the ER and I believe to be appropriate for discharge at this time. Continue taking [id number] antihistamine such as Zyrtec or Xyzal daily. Take the prescribed prednisone as directed for the next few days. Use the prescribed EpiPen if needed for severe allergic reaction. If you have severe allergic reaction, immediately return to the ER. Avoid red meat. Follow-up with your primary care doctor for reevaluation. Return to the ER with any new, worsening, or otherwise concerning symptoms. Clinical Impressions Clinical Impression: Anaphylaxis Instructions Patient Instructions: Anaphylaxis, DI for Anaphylaxis Print Language Print Language: British Discharge ED Provider: Rajiv Vallejo Adult HPI General Chief complaint: Skin/Abscess/Foreign Body Stated complaint: reaction to red meat, rash, took epi pen Time Seen by Provider: 09/27/24 02:50 Mode of Arrival: Ambulatory Source of Information: Patient Description of Symptoms (Recalled from ER Triage Doc. by RN): patient presented with a red raised rash to entire body. Stated that he was dx with alpha gal syndrome and instructed to avoid red meat. Reports eating a hamburger at 2130. C/o of itching and slightly shortness of breath. States used epi pen at 0150 History of Present Illness HPI narrative: 24-year-old male presents to the ER for concerns of severe allergic reaction including rash and vomiting. Patient reports he was diagnosed with alpha gal syndrome and instructed to avoid red meat however multiple hours prior to arrival he got a free hamburger and ate it. Many hours later, he developed a red rash over his entire body that included itching as well as mild shortness of breath. He administered the EpiPen and came to the ER for further evaluation. He states his reaction was actually slightly less than it has been in the past. He states most recently he had a reaction a few weeks ago after eating pork rinds. Patient requests refill for EpiPen. Related Data Previous Rx's ?Medication ?Instructions ?Recorded epinephrine 0.3 mg/0.3 mL 0.3 mg (0.3 mL) IM Q15M PRN 08/04/24 injection, auto-injector (EpiPen anaphylaxis #2 ea 2-Cristian) epinephrine 0.3 mg/0.3 mL 0.3 mg (0.3 mL) IM Q15M PRN 09/27/24 injection, auto-injector (EpiPen) anaphylaxis #2 ea prednisone 50 mg tablet 50 mg PO DAILY 3 days #3 tabs 09/27/24 Allergies Allergy/AdvReac Type Severity Reaction Status Date / Time No Known Allergies Allergy Verified 05/25/24 16:36 [facility] Disclaimer: The information contained in this section may have been updated after the patient was seen, as this information can be updated by other users. Surgical History (Updated 02/03/24 @ 14:37 by Nancy Tolliver RN) History of tonsillectomy Social History Smoking Status: Never smoker alcohol intake: never current occupational status: employed Travel in the last 8 weeks?: None Have you lived/traveled outside [place] in past 30 days?: No Contact w/someone who lives/traveled outside [place] past 30 days?: No Exposure to someone with infectious disease in past 14 days?: No Do you have a fever (greater than 100.4 F or 38 C)?: No Have you tested positive for COVID-19?: No Exposed to someone with COVID-19 in past 14 days?: No Do you have a sore throat?: No Do you have a cough?: No Do you have any weakness?: No Do you have any diarrhea?: No Are you experiencing any unusual bleeding?: No Do you have any muscle aches/pain?: No Do you have any abdominal pain?: No Are you experiencing loss of taste or smell?: No ROS Obtained: Yes Systems reviewed as appropriate & no additional complaints except as documented Per HPI Physical Exam General General appearance: alert and in no apparent distress Head Head exam: atraumatic and normocephalic Eye Eye exam: Present PERRL and EOMI ENT ENT exam: Present mucous membranes moist and other (No angioedema) Neck Neck exam: Present normal inspection and full ROM Chest Chest inspection: Present symmetric chest wall rise Respiratory Respiratory exam: Present normal lung sounds bilaterally; Absent respiratory distress, wheezes or stridor Cardiovascular Cardiovascular exam: Present regular rate and normal rhythm Abdominal Exam Abdominal exam: Present soft; Absent distention or tenderness Extremities Exam Extremities exam: Present full ROM Neurological Exam Neurological exam: Present alert and oriented X3; Absent motor sensory deficit Psychiatric Psychiatric exam: Present normal affect and normal mood Skin Skin exam: Present warm, dry and other (Erythematous rash with diffuse urticaria over the entire body) Medical Decision Making Medical Records Medical records reviewed: Yes I reviewed the patient's medical records. Screening: Per USPSTF and CDC recommendations, given the prevalence of disease in our region, it is our hospital?s policy to screen for HIV and viral Hepatitis for all patients aged 18 and over and those with ongoing risk factors. MR Comment: Patient has been evaluated in our ER for similar presentation multiple times. Most recently July of this year Agusto Inquiry Pt receiving controlled substance: No Vital Signs: 09/27/24 03:01 09/27/24 03:07 09/27/24 03:45 Temperature 98.7 F Temperature Source Oral Pulse Rate 69 80 Pulse Rate [Right Brachial] 70 Respiratory Rate 16 16 Blood Pressure 124/72 114/54 L Blood Pressure [Right Arm] 111/66 Blood Pressure Mean Blood Pressure Mean [Right Arm] 81 Blood Pressure Source [Right Arm] Automatic Cuff Blood Pressure Position Blood Pressure Position [Right Arm] Supine 02 Sat by Pulse Oximetry 98 97 98 Oxygen Delivery Method Room Air Room Air 09/27/24 04:00 09/27/24 04:30 09/27/24 04:43 Temperature 98.0 F Temperature Source Oral Pulse Rate 82 82 Pulse Rate [Right Brachial] Respiratory Rate 16 16 Blood Pressure 121/63 114/70 114/70 Blood Pressure [Right Arm] Blood Pressure Mean 75 Blood Pressure Mean [Right Arm] Blood Pressure Source [Right Arm] Blood Pressure Position Supine Blood Pressure Position [Right Arm] 02 Sat by Pulse Oximetry 96 Oxygen Delivery Method Room Air Lab Data Lab Results 09/27/24 03:05: WBC 7.2, RBC 4.95, Hgb 16.9, Hct 45.6, MCV 92.1, MCH 34.1 H, MCHC 37.1 H, RDW 11.6, Plt Count 270, MPV 10.7 H, Neut % (Auto) 38.5, Lymph % (Auto) 52.2 H, Hamilton % (Auto) 7.5, Eos % (Auto) 1.4, Baso % (Auto) 0.1, Neut # (Auto) 2.8, Lymph # (Auto) 3.8, Hamilton # (Auto) 0.5, Eos # (Auto) 0.1, Baso # (Auto) 0.0, Sodium 136, Potassium 4.0, Chloride 105, Carbon Dioxide 25, Anion Gap 10.0, BUN 18, Creatinine 0.70, Estimated Creat Clear 133, Estimated GFR 141, Est GFR ( Amer) 171, Glucose 126 H, Calcium 9.3, Total Bilirubin 1.2, AST 25, ALT 16, Alkaline Phosphatase 133 H, Total Protein 6.5, Albumin 4.4, Globulin 2.1, Albumin/Globulin Ratio 2.1 H 09/27/24 03:05 09/27/24 03:05 Orders (Tests/Meds): ED MEDICATIONS Discontinued Medications Generic Name Dose Route Start Last Admin Trade Name Freq PRN Reason Stop Dose Admin Diphenhydramine HCl 50 mg 09/27/24 03:14 09/27/24 03:19 Diphenhydramine 50mg/Ml Vial IV 09/27/24 03:15 50 mg ONCE ONE Administration Loratadine 20 mg 09/27/24 03:17 09/27/24 03:24 Loratadine 10mg Tablet PO 09/27/24 03:18 20 mg ONCE ONE Administration Methylprednisolone Sodium Succinate 125 mg 09/27/24 03:14 09/27/24 03:19 Methylprednisolone Sod Succ 125mg Vial IV 09/27/24 03:15 125 mg ONCE ONE Administration ORDERS Category Date Time Status CBC w/Auto Diff [Complete Blood Count Auto Diff] Stat Lab 09/27/24 03:05 Completed CMP [Comprehensive Metabolic Panel] Stat Lab 09/27/24 03:05 Completed Medical Decision Narrative: In summary, this 24-year-old male with comorbidities described in the HPI presents to the emergency department today with concerns of severe allergic reaction in the setting of known alpha gal syndrome. On initial evaluation patient is hemodynamically stable, afebrile, airway patent, no angioedema, no stridor or wheezing, benign abdominal exam, diffuse erythematous rash as described in physical exam. Differential diagnosis includes but is not limited to anaphylaxis, angioedema, urticaria, etc. Based on these concerns, I ordered basic serum labs in case patient has continued progressive reaction. Patient had already taken his EpiPen at home. Antihistamines and steroids administered in the ER. Patient was placed into ED observation at 0315 for continued monitoring to ensure no progression of symptoms. He remained on the monitoring manager and was frequently reassessed. On reassessment he is much improved appearing, rash is reduced, he feels well and is tolerating oral intake. I believe he is appropriate for discharge at this time. I prescribed steroid and refill of EpiPen for continued home management of symptoms. Recommended continued outpatient antihistamine use. Counseled the patient on strict avoidance of any red meat due to his alpha gal syndrome which he understands. He admits that dudley's incident was just an accident because he was given a free burger. He was counseled on the potential for rebound reaction and given instructions on how to manage this and to return to the ER. Patient was given instructions on symptomatic management, medication use, follow up instructions, and return precautions for the emergency department. Patient indicated understanding and was discharged in stable condition. Total time in ED observation: 1 hour 15 minutes Critical Care Critical Care Time Critical Care Time: Yes Attestation: On 09/27/24, the high probability of a clinically significant, sudden or life threatening deterioration of the following system(s) required my full and direct attention, intervention and personal management. The time I documented below is in addition to time spent performing reported procedures but includes the following listed in this critical care notation. Total Time Total Critical Care Time: 30
== END 2024-09-27 04:45 | disposition home or self-care (01) ==
PROVIDERS: Emergency Provider Emergency Medicine
DX: T78.2XXA Anaphylactic shock, unspecified, initial encounter (principal); R06.02 Shortness of breath; L50.0 Allergic urticaria; Z91.014 Allergy to mammalian meats
CPT/HCPCS: 80053; 85025; 96374; 96375; 99291; J1200; J2919